=== PATIENT | male | born 1970 | race Caucasian/White ===

== ENCOUNTER 2018-08-11 19:51 | Emergency (ER) | payer OTHER ==
--- NOTE | 2018-08-11 20:04 | PDOC ---
Rapid Medical Evaluation Chief Complaint: Chest Pain Medical Evaluation: Allergies Allergy/AdvReac Type Severity Reaction Status Date / Time No Known Allergies Allergy Verified 01/07/18 14:49 08/11/18 19:59 I have performed a brief in-person evaluation of this patient. The patient presents with a chief complaint of: CP since noon with radiation to back, with dizziness/ no cough or SOB Pertinent physical exam findings: pale, appears nervous fidgiting, and asking multiple questions. I have ordered the following: EKG, CXR CBC, CMP, PT/INR, Cardiac profile The patient will proceed to the ED for further evaluation. 08/11/18 20:03 08/11/18 20:04 Discharge Disposition - Diagnosis Chest pain - Discharge Dispostion Condition at time of disposition: Stable - Referrals - Patient Instructions - Post Discharge Activity
[2018-08-11 20:05] VITALS: BMI 31.3
[2018-08-11 20:15] LABS: BASO % 0.7 % (0-2.0); EOS % 1.9 % (0-4.5); HEMOGLOBIN 14.9 GM/dL (11.7-16.9); LYMPH % 18.6 % (8-40); MCH 35.1 pg (25.7-33.7); MCHC 35.4 g/dl (32.0-35.9); MEAN CELL VOLUME 99.1 fl (80-96); MEAN PLT VOLUME 7.7 fl (7.5-11.1); NEUT % 70.8 % (42.8-82.8); PLATELET COUNT 160 K/MM3 (134-434); RBC 4.24 M/mm3 (4.00-5.60); RDW 13.2 % (11.9-15.9); WHITE BLOOD COUNT 6.7 K/mm3 (4.0-10.0)
[2018-08-11 20:45] LABS: ALK PHOS 41 U/L (45-117); ANION GAP 9 MMOL/L (8-16); BILIRUBIN,TOTAL 0.4 mg/dL (0.2-1); BLOOD UREA NITROGEN 28 mg/dL (7-18); CALCIUM 8.9 mg/dL (8.5-10.1); CHLORIDE 106 mmol/L (98-107); CO2 26 mmol/L (21-32); CREATININE 1.3 mg/dL (0.55-1.3); GLUCOSE,RANDOM 102 mg/dL (74-106); SGOT/AST 20 U/L (15-37); SGPT/ALT 37 U/L (13-61); SODIUM 141 mmol/L (136-145); TOT PROT 7.3 g/dl (6.4-8.2)
--- NOTE | 2018-08-11 20:53 | PDOC ---
History of Present Illness - General Chief Complaint: Chest Pain Stated Complaint: CHEST PAINS Time Seen by Provider: 08/11/18 20:09 History Source: Patient Exam Limitations: No Limitations - History of Present Illness Initial Comments: 08/11/18 20:49 Patient is a 47M with history of dilated aortic root (dx on us, followed as outpatient) here today complaining of chest pain that radiates to his back. Patient describes becoming dizzy and a tingling in his left leg. Patient also describes an associated shortness of breath. Denies fevers, chills, nausea, vomiting. Denies illicit drug use, states that he took a male enhancement supplement. Denies history of blood clots, recent travel, leg swelling. Past History - Past Medical History Allergies/Adverse Reactions: Allergies Allergy/AdvReac Type Severity Reaction Status Date / Time No Known Allergies Allergy Verified 08/11/18 20:01 Home Medications: Ambulatory Orders Amoxicillin/Potassium Clav [Augmentin 875-125 Tablet] 1 each PO BID #14 tablet 01/09/18 Anemia: No Asthma: No Cardiac Disorders: Yes (DILATED AORTIC VALVE) COPD: No Diabetes: No HTN: No Kidney Stones: No - Surgical History Abdominal Surgery: Yes (HERNIA X 4) Appendectomy: Yes Orthopedic Surgery: Yes (RT ELBOW SX) - Immunization History Td Vaccination: Yes Immunization Up to Date: Yes - Suicide/Smoking/Psychosocial Hx Smoking Status: No Smoking History: Never smoked Years of Tobacco Use: 0 Have you smoked in the past 12 months: No Number of Cigarettes Smoked Daily: 0 Cigars Per Day: 0 Information on smoking cessation initiated: No Hx Alcohol Use: No Drug/Substance Use Hx: No Substance Use Type: Alcohol Hx Substance Use Treatment: No Review of Systems - Review of Systems Able to Perform ROS?: Yes Comments:: 08/11/18 20:51 GENERAL/CONSTITUTIONAL: No fever or chills. No weakness. HEAD, EYES, EARS, NOSE AND THROAT: No change in vision. No ear pain or discharge. No sore throat. CARDIOVASCULAR: +chest pain +shortness of breath RESPIRATORY: No cough, wheezing, or hemoptysis. GASTROINTESTINAL: No nausea, vomiting, diarrhea or constipation. GENITOURINARY: No dysuria, frequency, or change in urination. MUSCULOSKELETAL: No joint or muscle swelling or pain. No neck or back pain. SKIN: No rash NEUROLOGIC: No headache, +vertigo, no loss of consciousness, +l leg tingling ENDOCRINE: No increased thirst. No abnormal weight change HEMATOLOGIC/LYMPHATIC: No anemia, easy bleeding, or history of blood clots. ALLERGIC/IMMUNOLOGIC: No hives or skin allergy. *Physical Exam - Vital Signs Last Vital Signs Temp Pulse Resp BP Pulse Ox 98.1 F 81 17 141/93 98 08/11/18 19:57 08/11/18 19:57 08/11/18 19:57 08/11/18 19:57 08/11/18 19:57 - Physical Exam Comments: 08/11/18 20:51 GENERAL: Awake, alert, and fully oriented, in no acute distress HEAD: No signs of trauma, normocephalic, atraumatic EYES: PERRLA, EOMI, sclera anicteric, conjunctiva clear ENT: Auricles normal inspection, hearing grossly normal, nares patent, oropharynx clear without exudates. Moist mucosa NECK: Normal ROM, supple, no lymphadenopathy, JVD, or masses LUNGS: No distress, speaks full sentences, clear to auscultation bilaterally HEART: Regular rate and rhythm, normal S1 and S2, no murmurs, rubs or gallops, peripheral pulses normal and equal bilaterally. ABDOMEN: Soft, nontender, normoactive bowel sounds. No guarding, no rebound. No masses EXTREMITIES: Normal inspection, Normal range of motion, no edema. No clubbing or cyanosis. NEUROLOGICAL: Cranial nerves II through XII grossly intact. Normal speech, normal gait, no focal sensorimotor deficits SKIN: Warm, Dry, normal turgor, no rashes or lesions noted. Moderate Sedation - Procedure Monitoring Vital Signs: Procedure Monitoring Vital Signs Temperature 98.1 F 08/11/18 19:57 Pulse Rate 81 08/11/18 19:57 Respiratory Rate 17 08/11/18 19:57 Blood Pressure 141/93 08/11/18 19:57 O2 Sat by Pulse Oximetry (%) 98 08/11/18 19:57 ED Treatment Course - LABORATORY CBC & Chemistry Diagram: 08/11/18 20:07 08/11/18 20:07 - ADDITIONAL ORDERS Additional order review: Laboratory Results 08/11/18 20:07 Sodium 141 Potassium 4.0 Chloride 106 Carbon Dioxide 26 Anion Gap 9 BUN 28 H Creatinine 1.3 Creat Clearance w eGFR 59.70 Random Glucose 102 Calcium 8.9 Total Bilirubin 0.4 AST 20 ALT 37 Alkaline Phosphatase 41 L Creatine Kinase 280 Troponin I 0.02 Total Protein 7.3 Albumin 4.0 08/11/18 20:07 RBC 4.24 MCV 99.1 H MCHC 35.4 RDW 13.2 MPV 7.7 Neutrophils % 70.8 Lymphocytes % 18.6 Monocytes % 8.0 Eosinophils % 1.9 Basophils % 0.7 - RADIOLOGY Radiology Studies Ordered: Category Date Time Status CHEST CTA [CT] Stat CT Scan 08/11/18 20:17 Ordered Medical Decision Making - Medical Decision Making 08/11/18 20:51 Patient is 47M here today with chest pain. Vitals normal and stable. Normal initial workup at outside hospital, neuro symptoms, dilated aortic root, pain radiating to back. Will do cardiac workup with CTA to evaluate for dissection. EKG shows normal sinus rhythm with rate of 91. No st elevations/depressions. Normal axis. Normal intervals. No t wave abnormalities. 08/11/18 21:58 CBC CMP normal. Trop .02. Pending CTA. 08/12/18 00:07 CTA shows ascending aortic aneurysm of 4.3cm, per patient this is about the same size on prior US. D/W Dr Matthew at [facility], patient will need to be observed. Transfer accepted. *DC/Admit/Observation/Transfer Diagnosis at time of Disposition: Chest pain - Discharge Dispostion Disposition: TRANSFER ACUTE CARE/OTHER HOSP Condition at time of disposition: Stable - Referrals - Patient Instructions - Post Discharge Activity - Transfer to Acute Care Facility Receiving Facility: [facility]. Accepting Physician:: Tiff
[2018-08-11 21:06] LABS: INR 0.89 (0.83-1.09); PROTHROMBIN TIME (PATIENT) 10.5 SEC (9.7-13.0)
[2018-08-11] MEDS ORDERED: SODIUM CHLORIDE 1,000 ML IV STA (21:39)
[2018-08-11] MEDS ORDERED: morphine CARPU-JECT 4 MG/1 ML DISP.SYRIN IVPUSH ONE (21:39)
[2018-08-11] MEDS ORDERED: morphine SULFATE 4 MG/ML VIAL ONE (21:46)
--- NOTE | 2018-08-11 21:50 | PDOC ---
Attending Attestation - HPI HPI: 08/11/18 21:59 The patient is a 47 year old male with a significant past medical history of dilated aortic root, who presents to the emergency department today complaining of chest pain with radiation to his back, and associated symptoms of dizziness and tingling in his L leg. He also notes some SOB. The patient denies any recent travel. Denies lower extremity edema and blood clots. Denies fever, chills, nausea, vomit, diarrhea and constipation. Denies dysuria, frequency, urgency and hematuria. Allergies: NKA Social history: Male enhancement supplement. <Elizabeth Harris - Last Filed: 08/11/18 21:59> - Resident Resident Name: Richmond Melendrez - ED Attending Attestation I have performed the following: I have examined & evaluated the patient, The case was reviewed & discussed with the resident, I agree w/resident's findings & plan, Exceptions are as noted - Physicial Exam PE: 08/11/18 22:37 Agree with exam as documented by resident Patient denies severe pain but appears stoic - Medical Decision Making 08/11/18 22:37 Vitals signs wnl but nature of complaint is concerning for acute vascular pathology f/u labs, cta dispo per clinical course 08/12/18 00:52 CT shows aortic aneurysm with active chest pain Pt for transfer to [facility] <Greyson Waldrop - Last Filed: 08/12/18 00:53> Attestations - Attestations 08/11/18 21:59 Documentation prepared by Elizabeth Harris, acting as chief medical technologist for Greyson Waldrop MD. <Elizabeth Harris - Last Filed: 08/11/18 21:59>
[2018-08-12] MEDS ORDERED: morphine CARPU-JECT 4 MG/1 ML DISP.SYRIN IVPUSH ONE (00:40)
[2018-08-12 00:42] VITALS: TEMP 97.5
[2018-08-12] MEDS ORDERED: morphine SULFATE 4 MG/ML VIAL ONE (00:50)
[2018-08-12 01:44] VITALS: BP 125/75
[2018-08-12 01:47] VITALS: PULSE 72
--- NOTE | 2018-08-12 11:56 | EKG ---
Test Reason : Blood Pressure : / mmHG Vent. Rate : 091 BPM Atrial Rate : 091 BPM P-R Int : 160 ms QRS Dur : 106 ms QT Int : 350 ms P-R-T Axes : 050 006 012 degrees QTc Int : 430 ms SINUS RHYTHM WITH PREMATURE ATRIAL COMPLEXES OTHERWISE NORMAL ECG WHEN COMPARED WITH ECG OF 02-MAY-2013 06:36, PREMATURE ATRIAL COMPLEXES ARE NOW PRESENT Confirmed by ARNAUD FIGUEROA, ARTIE ([id number]) on 08/12/2018 11:56:31 AM Referred By: Confirmed By:ARTIE LARES MD
== END 2018-08-12 02:28 | disposition short-term general hospital (02) ==
LOC: JER 19:51
PROC: 3E033NZ Introduction of Analgesics, Hypnotics, Sedatives into Peripheral Vein, Percutaneous Approach (ICD-10-PCS; principal; 2018-08-11)
PROC: 3E0337Z Introduction of Electrolytic and Water Balance Substance into Peripheral Vein, Percutaneous Approach (ICD-10-PCS; 2018-08-11)
DX: R07.9 Chest pain, unspecified (principal)
CPT/HCPCS: 36415; 71046-TC-FY; 71275-TC; 80053; 82550; 82553; 84484; 85025; 85610; 93005; 93010; 99285-25; J7030

== ENCOUNTER 2019-04-05 12:25 | Emergency (ER) | payer BC, OTHER ==
[2019-04-05 12:42] VITALS: TEMP 97.7; BMI 33.6
[2019-04-05] MEDS ORDERED: SODIUM CHLORIDE 0.9% 1000 ML INFUS.BAG IV ONE (13:15)
[2019-04-05 14:33] LABS: BASO % 0.3 % (0-2.0); EOS % 1.1 % (0-4.5); HEMATOCRIT 38.3 % (35.4-49); HEMOGLOBIN 12.9 GM/dL (11.7-16.9); LYMPH % 16.3 % (8-40); MCH 33.5 pg (25.7-33.7); MCHC 33.7 g/dl (32.0-35.9); MEAN CELL VOLUME 99.4 fl (80-96); MEAN PLT VOLUME 8.3 fl (7.5-11.1); NEUT % 75.3 % (42.8-82.8); PLATELET COUNT 148 K/MM3 (134-434); RBC 3.86 M/mm3 (4.00-5.60); RDW 13.7 % (11.9-15.9); WHITE BLOOD COUNT 4.2 K/mm3 (4.0-10.0)
[2019-04-05 14:35] LABS: ALBUMIN 3.8 g/dl (3.4-5.0); ALK PHOS 32 U/L (45-117); ANION GAP 6 MMOL/L (8-16); BILIRUBIN,TOTAL 0.4 mg/dL (0.2-1); BLOOD UREA NITROGEN 20.3 mg/dL (7-18); CALCIUM 9.2 mg/dL (8.5-10.1); CHLORIDE 107 mmol/L (98-107); CO2 27 mmol/L (21-32); CREATININE 1.1 mg/dL (0.55-1.3); GLUCOSE,RANDOM 82 mg/dL (74-106); POTASSIUM 4.1 mmol/L (3.5-5.1); SGOT/AST 18 U/L (15-37); SGPT/ALT 43 U/L (13-61); SODIUM 140 mmol/L (136-145)
--- NOTE | 2019-04-05 15:02 | PDOC ---
Documentation entered by Amor Hardwick SCRIBE, acting as scribe for Vanesa Shoemaker MD. Vanesa Shoemaker MD: This documentation has been prepared by the suzyeRonen Aiswarya, SCRIBE, under my direction and personally reviewed by me in its entirety. I confirm that the documentation accurately reflects all work, treatment, procedures, and medical decision making performed by me. History of Present Illness - General Chief Complaint: Lightheaded Stated Complaint: RT. KNEE PAIN/ LT. ARM PAIN Time Seen by Provider: 04/05/19 13:01 History Source: Patient Exam Limitations: No Limitations - History of Present Illness Initial Comments: 04/05/19 13:40 The patient is a 48 year old male, with a significant PMH of dilated aortic valve, who presents to the emergency department with lightheadedness and knee pain that began this week. Patient states he endorses associated symptoms of feeling BP 150/90, flushed, chills, decreased sleep and headache this afternoon. He also notes posterior/anterior knee pain and back pain. 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 The patient denies chest pain, shortness of breath, fever , chills, nausea, vomit, diarrhea and constipation. Denies any numbness or tingling. Allergies: NKDA Past surgical history: abdominal hernia x4, appendectomy, right elbow orthopedic Social history: None reported 04/05/19 14:57 Past History - Past Medical History Allergies/Adverse Reactions: Allergies Allergy/AdvReac Type Severity Reaction Status Date / Time No Known Allergies Allergy Verified 04/05/19 12:42 Home Medications: Ambulatory Orders NK [No Known Home Medication] 08/12/18 Anemia: No Asthma: No Cardiac Disorders: Yes (DILATED AORTIC VALVE) COPD: No Diabetes: No HTN: No Kidney Stones: No - Surgical History Abdominal Surgery: Yes (HERNIA X 4) Appendectomy: Yes Orthopedic Surgery: Yes (RT ELBOW SX) - Immunization History Td Vaccination: Yes Immunization Up to Date: Yes - Psycho Social/Smoking Cessation Hx Smoking Status: No Smoking History: Never smoked Years of Tobacco Use: 0 Have you smoked in the past 12 months: No Number of Cigarettes Smoked Daily: 0 Cigars Per Day: 0 Hx Alcohol Use: Yes Drug/Substance Use Hx: No Substance Use Type: Alcohol Hx Substance Use Treatment: No Review of Systems - Review of Systems Able to Perform ROS?: Yes Comments:: 04/05/19 13:41 GENERAL/CONSTITUTIONAL: No fever or chills. No weakness. HEAD, EYES, EARS, NOSE AND THROAT: No change in vision. No ear pain or discharge. No sore throat. CARDIOVASCULAR: No chest pain or shortness of breath. RESPIRATORY: No cough, wheezing, or hemoptysis. GASTROINTESTINAL: No nausea, vomiting, diarrhea or constipation. GENITOURINARY: No dysuria, frequency, or change in urination. MUSCULOSKELETAL: + left knee pain. +right elbow pain. No neck or back pain. SKIN: No rash NEUROLOGIC: +headache. No vertigo, loss of consciousness, or change in strength/ sensation. ENDOCRINE: No increased thirst. No abnormal weight change. HEMATOLOGIC/LYMPHATIC: No anemia, easy bleeding, or history of blood clots. ALLERGIC/IMMUNOLOGIC: No hives or skin allergy. *Physical Exam - Vital Signs Last Vital Signs Temp Pulse Resp BP Pulse Ox 97.7 F 81 16 141/90 97 04/05/19 12:39 04/05/19 12:39 04/05/19 12:39 04/05/19 12:39 04/05/19 12:39 - Physical Exam Comments: 04/05/19 15:00 awake alert lungs clear bilat heart rrr no mrg abd soft nt nd ext wwp no edema. no calf tenderness. right knee FROM no laxity. no noted effusion. no swelling. neg ant/ post drawer. hip / ankle NT FROM. left arm elbow FROM. mild ttp over proximal forearm muscle. no swelling. no erythema. nuero alert oriented x 3. 5/ 5 all four ext. Heart Score/ECG Review #1 ECG reviewed & interpreted by me at: 15:06 General ECG Interpretation: Sinus Rhythm, Normal Rate (72), Normal Intervals, No acute ischemic changes Compared to previous ECG there are: Other (TWI III only.) ED Treatment Course - LABORATORY CBC & Chemistry Diagram: 04/05/19 13:41 04/05/19 13:41 - ADDITIONAL ORDERS Additional order review: Laboratory Results 04/05/19 13:41 Sodium 140 Potassium 4.1 Chloride 107 Carbon Dioxide 27 Anion Gap 6 L BUN 20.3 H Creatinine 1.1 Est GFR (CKD-EPI)AfAm 92.81 Est GFR (CKD-EPI)NonAf 80.08 Random Glucose 82 Calcium 9.2 Total Bilirubin 0.4 AST 18 ALT 43 Alkaline Phosphatase 32 L Creatine Kinase 272 Troponin I < 0.02 Total Protein 7.0 Albumin 3.8 04/05/19 13:41 RBC 3.86 L MCV 99.4 H MCHC 33.7 RDW 13.7 MPV 8.3 Neutrophils % 75.3 Lymphocytes % 16.3 Monocytes % 7.0 Eosinophils % 1.1 Basophils % 0.3 - RADIOLOGY Radiology Studies Ordered: Category Date Time Status CHEST PA & LAT [RAD] Stat Radiology 04/05/19 13:13 Completed KNEE 3 POS-RIGHT [RAD] Stat Radiology 04/05/19 13:13 Completed DUPLEX VASCUL US-1 LEG [US] Stat Ultrasound 04/05/19 13:59 Ordered - Medications Given in the ED: ED Medications Discontinued Medications Generic Name Dose Route Start Last Admin Trade Name Freq PRN Reason Stop Dose Admin Sodium Chloride 1,000 ml 04/05/19 13:15 04/05/19 13:45 Normal Saline - IV 04/05/19 13:16 1,000 ml ONCE ONE Administration Medical Decision Making - Medical Decision Making Medical Decision Makin yo male with aortic valve insufficiency, works as a military police officer, here with feeling lightheaded. various muscle complaints. left forearm myalgia, bilat leg thigh pain. no f/c no sp no sob. no recent travel. no h/o pe or dvt. today was walking to work and felt lightheaded. no loc no syncope no palpitations. has been having bilat leg thigh pain for several weeks, more left knee. overall feels run down has been eating and drinking ok. differential: electrolyte abnoramlity, anemia, mysoitis, lyme, knee bursitis or ligamentous injury . plan xray knee, doppler left leg, cxr labs ekg iv hydration. will send lyme titer also noted his bp was elevated at 159/ 100. has not h/o htn. will order labs r/o end organ damage. lab unremarkable. ekg normal. CXR normal. xray knee normal. awaiting doppler r/ o dvt. if negative will dc home. near syncope. will give fu with cardiology. pt labs are normal. dvt study negative. Discharge - Discharge Information Problems reviewed: Yes Clinical Impression/Diagnosis: Near syncope, Myalgia Disposition: HOME - Admission No - Follow up/Referral Referrals: Arsen Fox [Primary Care Provider] - Miguel Corona MD [Staff Physician] - - Patient Discharge Instructions Patient Printed Discharge Instructions: Fainting Additional Instructions: your labs are normal today. your chest xray is normal. your ultrasound of your legs are negative for a DVT. you should follow up with your filling carrier. If you do not have one you can call dr Corona. see referral information and call to schedule. return for any problems or concerns. you should also follow up with dr Singh for your knee pain. see referral for information and call to schedule followup appointment. - Post Discharge Activity
[2019-04-05 17:20] VITALS: BP 127/87; PULSE 70
--- NOTE | 2019-04-06 14:08 | EKG ---
Test Reason : Blood Pressure : / mmHG Vent. Rate : 072 BPM Atrial Rate : 072 BPM P-R Int : 170 ms QRS Dur : 100 ms QT Int : 372 ms P-R-T Axes : 040 -02 -02 degrees QTc Int : 407 ms NORMAL SINUS RHYTHM NORMAL ECG WHEN COMPARED WITH ECG OF 11-AUG-2018 19:54, PREMATURE ATRIAL COMPLEXES ARE NO LONGER PRESENT Confirmed by JACI CARPENTER MD ([id number]) on 04/06/2019 2:07:48 PM Referred By: Confirmed By:JACI CARPENTER MD
== END 2019-04-05 17:20 | disposition home or self-care (01) ==
LOC: JER 12:25
PROC: 3E0337Z Introduction of Electrolytic and Water Balance Substance into Peripheral Vein, Percutaneous Approach (ICD-10-PCS; principal; 2019-04-05)
DX: R55 Syncope and collapse (principal); M79.10 Myalgia, unspecified site; I51.9 Heart disease, unspecified
CPT/HCPCS: 36415; 71046-TC-FY; 73562-TC-RT-FY; 80053; 82550; 82553; 84484; 85025; 86618; 93005; 93010; 93971-TC; 99283-25; J7030